=== PATIENT | male | born 1975 | race Two or more races ===

== ENCOUNTER → 2023-10-01 | Emergency (ER) | payer MEDICAID, OTHER ==
[~2023-10-01] VITALS: Ht 172.7 cm; Wt 81.6 kg
[~2023-10-01] MED LIST: ERYT3.5O9 RIGHTEYE; FLUORESCEIN SODIUM OPHTH 1 EA STRIP ONE; NALO4SPR BNOSTRILS; TETRAcaine 5 ML BOTTLE ONE
[2023-10-01 08:03] VITALS: BP 145/70; TEMP 98.3; O2SAT 99
[2023-10-01] MEDS: FLUORESCEIN SODIUM OPHTH 1 EA STRIP OP ONE (08:11)
[2023-10-01] MEDS: TETRACAINE HCL 0.5% OPHTALMIC 15 ML BOTTLE OP ONE (08:12)
== END | disposition home or self-care (01) ==
LOC: ER 07:51
DX: T40.411A Poisoning by fentanyl or fentanyl analogs, accidental (unintentional), initial encounter (principal); S05.01XA Injury of conjunctiva and corneal abrasion without foreign body, right eye, initial encounter; H10.211 Acute toxic conjunctivitis, right eye; R40.4 Transient alteration of awareness; I10 Essential (primary) hypertension; X58.XXXA Exposure to other specified factors, initial encounter; Y93.89 Activity, other specified; Y92.89 Other specified places as the place of occurrence of the external cause; Y99.8 Other external cause status